=== PATIENT | female | born 1985 | race Caucasian/White ===

== ENCOUNTER 2020-03-19 14:48 | Observation (INO) | payer MEDICAID ==
[~2020-03-19] VITALS: Ht 157.5 cm; Wt 86.6 kg
[2020-03-19] MEDS ORDERED: PNV1TABL76 PO (16:53)
== END 2020-03-19 17:00 | disposition home or self-care (01) ==
LOC: 8 EST LDRP 14:48
PROVIDERS: ADMIT Obstetrics & Gynecology; ATTEND Obstetrics & Gynecology
DX: O36.8130 Decreased fetal movements, third trimester, not applicable or unspecified (principal); Z3A.37 37 weeks gestation of pregnancy
CPT/HCPCS: 59025; 76805; 76818; 99281; G0378

== ENCOUNTER 2020-04-16 08:43 | Inpatient (IN) | payer MEDICAID ==
[~2020-04-16] VITALS: Ht 5 cm; Wt 87.1 kg
[~2020-04-16 08:43] MED LIST: PNV1TABL76 PO
[2020-04-16] MEDS ORDERED: LACTATED RINGERS 1,000 ML IV SCH (09:58)
[2020-04-16] MEDS ORDERED: BUTORPHANOL TARTRATE 2 MG/ML VIAL IV PRN (10:00)
[2020-04-16] MEDS ORDERED: NALOXONE HCL 0.4 MG/ML 1ML VIAL IM PRN (10:00)
[2020-04-16] MEDS ORDERED: MISOPROSTOL 200MCG TABLET VG SCH (10:00)
[2020-04-16] MEDS ORDERED: LIDOCAINE HCL 1% 20ML VIAL (Pyxis) INJ INFIL SCH (10:00)
[2020-04-16] MEDS: DEXT 5%/LR + PITOCIN 20UNITS/L 1,000 ML IV SCH ×2 (10:41→17:11)
[2020-04-16 11:14] LABS: BASOPHILS % 0.3 % (0.0-2.0); EOSINOPHILS % 1.3 % (0.0-5.0); HEMOGLOBIN. 10.9 g/dL (12.0-16.0); LYMPHOCYTES % 19.3 % (20.0-50.0); MEAN CORPUSCULAR VOLUME 90.6 fL (81.0-99.0); MEAN PLATELET VOLUME 10.5 fl (7.4-10.4); MONOCYTES % 9.3 % (2.0-8.0); NEUTROPHILS % 69.8 % (40.0-76.0); PLATELET 177 x1000/uL (130-400); RED BLOOD CELL COUNT 3.53 mill/uL (4.2-5.4); RED CELL DISTRIBUTION WIDTH 14.3 % (11.6-14.6)
[2020-04-16 11:26] LABS: PARTIAL THROMBOPLASTIN TIME 33.5 sec (23.4-31.0); PROTHROMBIN TIME 10.2 sec (9.6-11.0)
[2020-04-16 11:38] LABS: CLARITY URINE CLOUDY (CLEAR); COLOR URINE DK YELLOW (YELLOW); KETONES URINE TRACE (NEGATIVE); LEUKOCYTE ESTERASE URINE 1+ (NEGATIVE); NITRITE URINE NEGATIVE (NEGATIVE); OCCULT BLOOD URINE NEGATIVE (NEGATIVE); PH URINE 6.5 (4.5-8.0); PROTEIN URINE NEGATIVE (NEGATIVE)
[2020-04-16 12:26] LABS: *AMPHETAMINES SCREEN URINE NEGATIVE (NEGATIVE); *BARBITURATES SCREEN URINE NEGATIVE (NEGATIVE); *BENZODIAZEPINES SCREEN URINE NEGATIVE (NEGATIVE); *COCAINE SCREEN URINE NEGATIVE (NEGATIVE)
[2020-04-16 12:27] LABS: METHADONE URINE SCREEN NEGATIVE (NEGATIVE)
[2020-04-16 12:28] LABS: OPIATES URINE SCREEN NEGATIVE (NEGATIVE)
[2020-04-16 12:29] LABS: CANNABINOID URINE SCREEN NEGATIVE (NEGATIVE); PHENCYCLIDINE URINE SCREEN NEGATIVE (NEGATIVE)
[2020-04-16 12:57] LABS: HEPATITIS B SURFACE ANTIGEN NEGATIVE
[2020-04-16] MEDS ORDERED: DEXT 5%/LR + PITOCIN 20UNITS/L 1,000 ML IV SCH (15:31)
[2020-04-16] MEDS ORDERED: GLYCERIN/WITCH HAZEL LEAF MEDICATED PAD TOP PRN (15:45)
[2020-04-16] MEDS ORDERED: ACETAMINOPHEN WITH CODEINE 300/30MG TABLET PO PRN (15:45)
[2020-04-16] MEDS ORDERED: BENZOCAINE/LANOLIN/ALOE VERA SPRAY TOP PRN (15:45)
[2020-04-16] MEDS ORDERED: IBUPROFEN 400MG TABLET PO PRN (15:45)
[2020-04-16] MEDS ORDERED: LANOLIN OINT 7GM TUBE TOP PRN (15:45)
[2020-04-16] MEDS ORDERED: METHYLERGONOVINE MALEATE 0.2 MG/ML IM PRN (15:45)
[2020-04-16] MEDS ORDERED: BISACODYL 10MG SUPP PR PRN (15:45)
[2020-04-16] MEDS ORDERED: HEMORRHOIDAL SUPP PR PRN (15:45)
[2020-04-16 18:30] VITALS: BP 113/59
[2020-04-16 19:30] VITALS: BP 103/56
[2020-04-16] MEDS: SIMETHICONE 80MG TABLET CHEW PO SCH (22:30)
[2020-04-16] MEDS: MAGNESIUM/ALUMINUM HYDROXIDE/SIMETHICONE 30ML UDC PO SCH (22:31)
[2020-04-16] MEDS: DOCUSATE SODIUM 100MG CAPSULE PO SCH (22:31)
[2020-04-17 04:00] VITALS: BP 108/60
[2020-04-17 06:24] LABS: BASOPHILS % 0.4 % (0.0-2.0); EOSINOPHILS % 1.1 % (0.0-5.0); HEMATOCRIT. 27.5 % (36.0-48.0); HEMOGLOBIN. 9.2 g/dL (12.0-16.0); LYMPHOCYTES % 21.2 % (20.0-50.0); MEAN CORPUSCULAR HEMOGLOBIN 30.7 pg (28.0-32.0); MEAN CORPUSCULAR VOLUME 91.4 fL (81.0-99.0); MEAN PLATELET VOLUME 10.6 fl (7.4-10.4); NEUTROPHILS % 66.3 % (40.0-76.0); PLATELET 168 x1000/uL (130-400); RED BLOOD CELL COUNT 3.01 mill/uL (4.2-5.4); RED CELL DISTRIBUTION WIDTH 14.3 % (11.6-14.6)
[2020-04-17] MEDS: MAGNESIUM/ALUMINUM HYDROXIDE/SIMETHICONE 30ML UDC PO SCH ×4 (07:30→21:17)
[2020-04-17] MEDS: FERROUS SULFATE 325MG TABLET PO SCH ×3 (07:30→17:17)
[2020-04-17 07:45] VITALS: BP 110/58
[2020-04-17] MEDS: SIMETHICONE 80MG TABLET CHEW PO SCH ×4 (07:48→21:18)
[2020-04-17] MEDS: PRENATAL VIT/FE FUMARATE/FA TABLET PO SCH (07:49)
[2020-04-17] MEDS ORDERED: RHO(D) IMMUNE GLOBULIN 300 MCG/SYR IM PRN (13:30)
[2020-04-17] MEDS: ACETAMINOPHEN WITH CODEINE 300/30MG TABLET PO PRN (14:24)
[2020-04-17 16:00] VITALS: BP 93/50
[2020-04-17 20:00] VITALS: BP 99/57
[2020-04-17] MEDS: DOCUSATE SODIUM 100MG CAPSULE PO SCH (21:17)
[2020-04-18] VITALS: BP 100/55
[2020-04-18] MEDS ORDERED: LACTATED RINGERS 1,000 ML IV SCH (06:15)
[2020-04-18] MEDS ORDERED: CITRIC ACID/SODIUM CITRATE SOLN 30ML UDC PO NR (06:34)
[2020-04-18] MEDS: FERROUS SULFATE 325MG TABLET PO SCH ×2 (07:30→13:40)
[2020-04-18] MEDS: MAGNESIUM/ALUMINUM HYDROXIDE/SIMETHICONE 30ML UDC PO SCH ×2 (07:30→13:40)
[2020-04-18] MEDS ORDERED: EPHEDRINE SULFATE 50MG/ML VIAL ONE (07:32)
[2020-04-18] MEDS ORDERED: PHENYLEPHRINE HCL 10 MG/ML 1ML (IV VIAL) IV ONE (07:32)
[2020-04-18] MEDS ORDERED: SODIUM CHLORIDE 0.9% 10ML VIAL ONE (07:32)
[2020-04-18] MEDS ORDERED: CEFAZOLIN SODIUM 1000MG/VIAL ONE (07:32)
[2020-04-18 07:33] VITALS: BP 108/54
[2020-04-18] MEDS: SIMETHICONE 80MG TABLET CHEW PO SCH ×2 (08:00→13:40)
[2020-04-18] MEDS ORDERED: MIDAZOLAM HCL 2 MG/2 ML VIAL ONE (08:33)
[2020-04-18] MEDS ORDERED: IBUP-2028 PO (08:48)
[2020-04-18] MEDS ORDERED: MORPHINE SULFATE 4 MG/ML CPJ (NOT FOR IM USE) IV PRN (09:00)
[2020-04-18] MEDS ORDERED: DIPHENHYDRAMINE 50MG/ML VIAL IV PRN (09:00)
[2020-04-18] MEDS ORDERED: METOCLOPRAMIDE HCL 10MG/2ML VIAL IV PRN (09:00)
[2020-04-18] MEDS ORDERED: ONDANSETRON HCL 4MG/2ML INJ IV PRN (09:00)
[2020-04-18] MEDS: MORPHINE SULFATE 2 MG/ML CPJ (NOT FOR IM USE) IV PRN ×2 (09:27→10:00)
[2020-04-18 11:00] VITALS: BP 110/57
[2020-04-18] MEDS: PRENATAL VIT/FE FUMARATE/FA TABLET PO SCH (13:39)
[2020-04-18] MEDS: ACETAMINOPHEN WITH CODEINE 300/30MG TABLET PO PRN (13:39)
== END 2020-04-18 17:00 | disposition home or self-care (01) | DRG 541 ==
LOC: OBSVTOIN 08:43 → 8 EST LDRP 08:43 → 8EST 18:13
PROVIDERS: ADMIT Obstetrics & Gynecology; ATTEND Obstetrics & Gynecology
PROC: 10E0XZZ Delivery of Products of Conception, External Approach (ICD-10-PCS; principal; 2020-04-16)
PROC: 3E0234Z Introduction of Serum, Toxoid and Vaccine into Muscle, Percutaneous Approach (ICD-10-PCS; 2020-04-17)
PROC: 0UB70ZZ Excision of Bilateral Fallopian Tubes, Open Approach (ICD-10-PCS; 2020-04-18)
DX: O48.0 Post-term pregnancy (principal); Z30.2 Encounter for sterilization; Z37.0 Single live birth; Z03.818 Encounter for observation for suspected exposure to other biological agents ruled out; Z3A.41 41 weeks gestation of pregnancy
CPT/HCPCS: 36415; 80305; 81003; 85025; 86592; 86703; 86762; 86850; 86886; 86900; 87340; 88302; 90384; J0595; J0690; J2210; J2250; J2270; J2370; J2590; J3490; J7120; U0003-CS